=== PATIENT | female | born 1975 | race Caucasian/White ===

== ENCOUNTER 2019-03-23 19:10 | Emergency (ER) | payer OTHER ==
[~2019-03-23] VITALS: Ht 162.6 cm; Wt 55.7 kg
[2019-03-23 19:15] VITALS: Ht 162.6 cm; Wt 55.7 kg
[2019-03-23] MEDS ORDERED: ONDANSETRON (ODT) 4 MG TAB ODT STA (20:26)
[2019-03-23] MEDS ORDERED: LORAZEPAM 0.5 MG TAB PO ONE (20:30)
--- NOTE | 2019-03-23 20:30 | ERD ---
ER Documentation Chief Complaint Chief Complaint dizzy,shaky,&nauseous x 2 days HPI 43-year-old female, previously healthy, presents to the emergency department, complaining of 2 days with progressive spinning sensation, associated with nausea and 2 episodes of vomiting. The patient denies fever, no headaches, no distal weakness, numbness or tingling. No reports of similar symptoms in the past. No medications taken at this time. ROS All systems reviewed and are negative except as per history of present illness. Medications Home Meds Active Scripts Ondansetron Hcl* (Zofran*) 4 Mg Tablet, 4 MG PO Q8H PRN for NAUSEA AND/OR VOMITING, #20 TAB Prov:JACK DAVIDSON MD 03/23/19 Lorazepam* (Ativan*) 0.5 Mg Tablet, 0.5 MG PO Q8H PRN for dizziness, #10 TAB Prov:JACK DAVIDSON MD 03/23/19 Ciprofloxacin Hcl* (Ciprofloxacin Hcl*) 250 Mg Tablet, 250 MG PO BID, #10 TAB Prov:JACK DAVIDSON MD 03/23/19 Dimenhydrinate* (Dramamine*) 25 Mg Tab.chew, 25 MG PO Q6H PRN for dizziness, #30 TAB.CHEW Prov:JACK DAVIDSON MD 03/23/19 Allergies Allergies: Coded Allergies: No Known Allergy (Unverified , 03/23/19) PMhx/Soc Medical and Surgical Hx: pt denies Medical Hx, pt denies Surgical Hx Hx Alcohol Use: No Hx Substance Use: No Hx Tobacco Use: No Smoking Status: Never smoker FmHx Family History: No diabetes, No coronary disease Physical Exam Vitals Vital Signs Date Temp Pulse Resp B/P (MAP) Pulse Ox O2 O2 Flow FiO2 Time Delivery Rate 03/23/19 97.7 78 16 111/71 98 Room Air 22:19 (84) 03/23/19 99.1 81 18 118/68 97 19:15 (85) Physical Exam Patient is in no acute distress, vital signs stable. Alert and fully oriented. HEENT: PERRLA, EOMI, Sclera and conjunctiva appear normal, Canals clear, tympanic membranes WNL. THROAT: Normal oropharynx. NECK: Supple, No lymphadenopathy. Full ROM without pain or tenderness. HEART: RRR, no rubs, murmurs, clicks or gallops. LUNGS: Clear to auscultation. ABDOMEN: Soft, non-tender without masses or hepatosplenomegaly. EXTREMITIES: No edema bilaterally. BACK: Full ROM, no deformity, normal back exam NEURO: Cranial nerves grossly intact, no motor or sensory deficit. Mild horizontal nystagmus while the patient was looking straight ahead with mildly abnormal head impulse test. Result Diagram: 03/23/19203403/23/192034 Results 24 hrs Laboratory Tests Test 03/23/19 20:35 03/23/19 20:50 White Blood Count 10.9 10^3/ul Red Blood Count 5.26 10^6/ul Hemoglobin 14.9 g/dl Hematocrit 44.8 % Mean Corpuscular Volume 85.2 fl Mean Corpuscular Hemoglobin 28.3 pg Mean Corpuscular Hemoglobin Concent 33.3 g/dl Red Cell Distribution Width 11.9 % Platelet Count 277 10^3/UL Mean Platelet Volume 9.7 fl Immature Granulocytes % 0.400 % Neutrophils % 61.6 % Lymphocytes % 30.2 % Monocytes % 6.5 % Eosinophils % 0.7 % Basophils % 0.6 % Nucleated Red Blood Cells % 0.0 /100WBC Immature Granulocytes # 0.040 10^3/ul Neutrophils # 6.7 10^3/ul Lymphocytes # 3.3 10^3/ul Monocytes # 0.7 10^3/ul Eosinophils # 0.1 10^3/ul Basophils # 0.1 10^3/ul Nucleated Red Blood Cells # 0.0 10^3/ul Sodium Level 143 mmol/L Potassium Level 4.9 mmol/L Chloride Level 103 mmol/L Carbon Dioxide Level 29 mmol/L Anion Gap 11 Blood Urea Nitrogen 7 mg/dl Creatinine 0.74 mg/dl Est Glomerular Filtrat Rate mL/min > 60 mL/min Glucose Level 111 mg/dl Calcium Level 10.2 mg/dl Bedside Urine pH (LAB) 7.5 Bedside Urine Protein (LAB) Negative Bedside Urine Glucose (UA) Negative Bedside Urine Ketones (LAB) Negative Bedside Urine Blood 1+ Bedside Urine Nitrite (LAB) Negative Bedside Urine Leukocyte Esterase (L 3+ POC Beta HCG, Qualitative NEGATIVE Current Medications Medications Dose Sig/Tania Start Time Status Last (Trade) Ordered Route PRN Stop Time Admin Dose Reason Admin Lorazepam 0.5 mg ONCE ONCE 03/23/19 DC 03/23/19 (Ativan) PO 20:30 20:54 03/23/19 20:31 Ondansetron 8 mg ONCE STAT 03/23/19 DC 03/23/19 HCl (Zofran ODT 20:26 20:40 Odt) 03/23/19 20:29 Procedures/MDM Differential diagnosis include but not limited to dehydration, cardiac arrhythmia, , Mnire's disease, vestibular neuronitis, migraine, vertigo, side effects of the medications, hypoglycemia. Less likely but is still a possibility, intracranial hemorrhage, ischemic stroke, [employer] neoplasm. Physical examination and clinical presentation consistent most likely with positional vertigo, incidentally, the patient was found to have a urinary tract infection that will be treated. During the ED course the patient remained stable, no new complaints. Results and clinical impression discussed with patient who agrees with management. The patient is stable to be treated outpatient and will be discharged home with instructions to follow up with the primary care provider in the next 48h. If symptoms persist, worsen or new symptoms develop, then patient should return to the ED immediately. Instructions explained and given directly by me to the patient with acknowledgment and demonstrated understanding. Disclaimer: Inadvertent spelling and grammatical errors are likely due to EHR/dictation software use and do not reflect on the overall quality of patient care. Also, please note that the electronic time recorded on this note does not necessarily reflect the actual time of the patient encounter. Departure Diagnosis: Primary Impression: Positional vertigo Additional Impression: UTI (urinary tract infection) Condition: Stable Patient Instructions: Vertigo, Unspecified Additional Instructions: Muchas hardik por [facility] para nam servicio. Esperamos que en nam visita a la deep de emergencia nam problema medico haya sido solucionado y que se sienta mucho mejor. Para estar seguros que nam mejoria sigue en proceso, le pedimos el favor de hacer nick lanette de seguimiento medico con nam doctor primario en los proximos 2-4 arellano. Lleve con usted estos documentos y las medicinas recetadas. Si traci sintomas empeoran, NO SE ESPERE, por favor regrese a deep de emergencia INMEDIATAMENTE. En andrew que usted no tenga un mdico de atencin primaria: Llame al mdico o clnica comunitaria de referencia que aparece abajo josé las horas de consultorio para hacer nick lanette para que le vean. CLINICAS: [facility] [phone] [id number] [facility] [phone] [facility] [phone] [address] [facility]. [facility] [phone] [place] [phone] [facility] [phone] JACK ALEJANDRO MD Mar 23, 2019 20:30
[2019-03-23] MEDS ORDERED: ONDA4TAB8 PO (21:23)
[2019-03-23] MEDS ORDERED: LORA-441 PO (21:23)
[2019-03-23] MEDS ORDERED: CIPR-193 PO (21:23)
[2019-03-23] MEDS ORDERED: DIME25TA PO (21:23)
[2019-03-23 22:19] VITALS: BP 111/71; PULSE 78; RESP 16
== END 2019-03-23 22:00 | disposition home or self-care (01) ==
LOC: FTE 19:10
DX: H81.10 Benign paroxysmal vertigo, unspecified ear (principal); N39.0 Urinary tract infection, site not specified
CPT/HCPCS: 80048; 81003; 81025; 85025; Z7502; Z7610; 99283